=== PATIENT | female | born 1965 | race Caucasian/White ===

== ENCOUNTER 2017-06-13 07:11 | Day surgery (SDC) | payer BC ==
[~2017-06-13] VITALS: Ht 167.6 cm; Wt 89.5 kg
[~2017-06-13 07:11] MED LIST: CHOL10002; ESTR2 PO; OXYACE5T PO
--- NOTE | 2017-06-13 11:24 | NUR ---
06/13/17 1124 Keira Moreau DISCHARGE INSTRUCTIONS REVIEWED WITH PT AND SPOUSE. TOLERATING PO FLUIDS WELL. VSS.
[2018-07-05] MEDS ORDERED: Estradiol1 MG PO (10:45)
[2018-07-05] MEDS ORDERED: Vitamin D2000 UNIT PO (10:45)
== END 2017-06-13 09:36 | disposition home or self-care (01) ==
LOC: ORSCSDS 07:11
PROVIDERS: Internal Medicine Gastroenterology
PROC: 0DBN8ZX Excision of Sigmoid Colon, Via Natural or Artificial Opening Endoscopic, Diagnostic (ICD-10-PCS; principal; 2017-06-13 08:30)
PROC: 0DBL8ZX Excision of Transverse Colon, Via Natural or Artificial Opening Endoscopic, Diagnostic (ICD-10-PCS; principal; 2017-06-13 08:30)
DX: Z86.010 Personal history of colon polyps (principal); D12.3 Benign neoplasm of transverse colon; K63.5 Polyp of colon; K64.8 Other hemorrhoids; Z83.71 Family history of colonic polyps; Z87.891 Personal history of nicotine dependence
CPT/HCPCS: 88305

== ENCOUNTER 2018-07-12 06:33 | Day surgery (SDC) | payer BC ==
[~2018-07-12] VITALS: Ht 167.6 cm; Wt 90.3 kg
[~2018-07-12 06:33] MED LIST changes: +Estradiol1 MG PO; +Vitamin D2000 UNIT PO
== END 2018-07-12 09:11 | disposition home or self-care (01) ==
LOC: ORSCSDS 06:33
PROVIDERS: Internal Medicine Gastroenterology
PROC: 0DBN8ZX Excision of Sigmoid Colon, Via Natural or Artificial Opening Endoscopic, Diagnostic (ICD-10-PCS; principal; 2018-07-12 08:00)
DX: Z86.010 Personal history of colon polyps (principal); K63.5 Polyp of colon; K64.8 Other hemorrhoids; Z87.891 Personal history of nicotine dependence
CPT/HCPCS: 88305; J0330; J1980; J2405; J7120

== ENCOUNTER 2024-10-02 09:10 | Day surgery (SDC) | payer BC ==
[~2024-10-02] VITALS: Ht 167.6 cm; Wt 92.1 kg
[~2024-10-02 09:10] MED LIST changes: +Lactated Ringer's 1,000 ML IV ONE; +propofoL 50 ML IV ONE
[2024-10-02] MEDS ORDERED: Lactated Ringer's 1,000 ML IV ONE (09:49)
[2024-10-02 11:27] VITALS: BP 132/81
== END 2024-10-02 11:20 | disposition home or self-care (01) ==
LOC: ORSCSDS 09:10
PROVIDERS: Internal Medicine Gastroenterology
PROC: 0DBL8ZX Excision of Transverse Colon, Via Natural or Artificial Opening Endoscopic, Diagnostic (ICD-10-PCS; principal; 2024-10-02 10:45)
PROC: 0DBM8ZX Excision of Descending Colon, Via Natural or Artificial Opening Endoscopic, Diagnostic (ICD-10-PCS; principal; 2024-10-02 10:45)
DX: Z12.11 Encounter for screening for malignant neoplasm of colon (principal); Z83.719 Family history of colon polyps, unspecified; Z86.0101 Personal history of adenomatous and serrated colon polyps; D12.3 Benign neoplasm of transverse colon; D12.4 Benign neoplasm of descending colon; K64.8 Other hemorrhoids; I10 Essential (primary) hypertension; Z87.891 Personal history of nicotine dependence
CPT/HCPCS: 88305; J2704; J7120